=== PATIENT | female | born 1995 | race African-American/Black ===

== ENCOUNTER → 2018-02-22 11:05 | Outpatient (CLI) | payer BC, SELFPAY ==
[2015-11-04 16:14] VITALS: BMI 17.2
--- NOTE | 2018-02-22 11:16 | RAD_ITS ---
STUDY: X-RAY CHEST REASON FOR EXAM: Female, 22 years old. Screening examination. TECHNIQUE: PA and lateral views of the chest. COMPARISON: None. FINDINGS: The lungs are clear and expanded. There is no demonstrated pleural abnormality. Normal size heart. Normal mediastinum and greg. Normal visualized pulmonary arteries. Normal visualized aortic arch and descending thoracic aorta. There is a levoscoliosis of the thoracic spine. Normal visualized ribs, clavicles, and shoulders. There is no demonstrated abnormality of the visualized soft tissue structures of the upper abdomen. RAD/Chest PA and Lateral IMPRESSION: Normal x-ray examination of the chest. Electronically Signed: Swapnil Nichols MD at 14:03 EST Tel [phone], Service support ,
== END ==
PROVIDERS: Referring Provider Family Medicine; Visit Provider Family Medicine
DX: Z13.9 Encounter for screening, unspecified (principal)
CPT/HCPCS: 71046